=== PATIENT | female | born 1980 | race African-American/Black ===

== ENCOUNTER → 2016-10-06 | Outpatient (CLI) | payer BC ==
--- NOTE | 2016-10-06 09:22 | US ---
EXAMINATION TYPE: US gallbladder DATE OF EXAM: 10/06/2016 8:34 AM COMPARISON: None. CLINICAL HISTORY: 36-year-old female R10 Abdominal Pain. RUQ pain and 1 episode of N/V. TECHNIQUE: Multiple sonographic images of the right upper quadrant were obtained. FINDINGS: Liver Length: 15.0 cm Gallbladder Wall: 0.3 cm CBD: 0.4 cm Right Kidney: 11.9 x 4.4 x 5.6 cm Pancreas: Suboptimal visualization of the pancreatic head and tail secondary to shadowing from bowel gas. Visualized pancreatic neck and body show no gross abnormality. Liver: There is coarsening of the normal echotexture without focal lesion seen. Gallbladder: Numerous layering calculi/gravel. No abnormal distention, wall thickening, or perichole cystic fluid. Evidence for sonographic Mcrae's sign: yes CBD: visualized portions within normal limits, limited distally by overlying midline bowel gas. Right Kidney: No hydronephrosis. IMPRESSION: 1. Numerous tiny layering gallbladder calculi/gravel. While there are no ancillary findings of acute cholecystitis, sonographic Mcrae's sign is reportedly positive. If further imaging evaluation is rigo ired, consider HIDA scan. 2. Coarsened appearance to the liver could represent underlying nonspecific hepatocellular disease. C orrelate with LFTs and patient risk factors.
== END | disposition home or self-care (01) ==
LOC: RADUSWWP 08:15
PROVIDERS: ATTEND Internal Medicine
DX: R10.11 Right upper quadrant pain (principal)
CPT/HCPCS: 76705

== ENCOUNTER 2016-10-22 07:39 | Day surgery (SDC) | payer BC ==
[2016-10-19 12:00] VITALS: BMI 36.0
[~2016-10-22 07:39] MED LIST: LACTATED RINGERS 1,000 ML IV SCH; MIDAZOLAM 2 MG/2 ML VIAL IV PRN; SCOPOLAMINE 1.5MG/72HR PATCH TRANSDERM ONE; ceFAZolin 2 GM in SODIUM CHLORIDE 0.9% 100 ML IVPB ONE
[2016-10-22] MEDS: ONDANSETRON 4 MG/2 ML VIAL IVP ONE ×3 (08:29→10:25)
[2016-10-22] MEDS: DEXAMETHASONE SOD PHOSPHATE 10 MG/ML 1 ML VIAL IV ONE ×2 (08:29→09:22)
[2016-10-22] MEDS ORDERED: LIDOCAINE 1% 20 ML VIAL (10MG/ML) FOR IV START INTRADERMA ONE (08:29)
[2016-10-22] MEDS ORDERED: fentaNYL (PF) 50 MCG/ML 2 ML AMP ONE (09:22)
[2016-10-22] MEDS ORDERED: GLYCOPYRROLATE 0.2 MG/ML 2 ML VIAL ONE (09:22)
[2016-10-22] MEDS ORDERED: PHENYLEPHRINE-0.9% NACL SYG 1 MG/10 ML SYRINGE ONE (09:22)
[2016-10-22] MEDS ORDERED: LIDOCAINE 1% INJ 10MG/ML (20 ML MDV) ONE (09:22)
[2016-10-22] MEDS ORDERED: NEOSTIGMINE 1 MG/ML 10 ML VIAL ONE (09:22)
[2016-10-22] MEDS ORDERED: MIDAZOLAM 2 MG/2 ML VIAL ONE (09:22)
[2016-10-22] MEDS ORDERED: KETOROLAC 30 MG/ML 1 ML VIAL ONE (09:22)
[2016-10-22] MEDS ORDERED: PROPOFOL 10 MG/ML 20 ML VIAL IV ONE (09:22)
[2016-10-22] MEDS ORDERED: ROCURONIUM BROMIDE 10 MG/ML 10 ML VIAL IV ONE (09:22)
[2016-10-22] MEDS ORDERED: SUCCINYLCHOLINE CHLORIDE 100 MG/5 ML SYR IV ONE (09:22)
[2016-10-22] MEDS ORDERED: BUPIVACAIN-EPI 0.25%-1:200,000 30 ML VIAL SQ ONE ×2 (09:37)
[2016-10-22 10:18] VITALS: TEMP 98
[2016-10-22] MEDS: HYDROmorphone 1 MG/ML 1 ML SYRINGE IVP PRN ×4 (10:20→10:33)
--- NOTE | 2016-10-22 10:21 | P.OP ---
Date of Procedure: 10/22/16 Preoperative Diagnosis: Cholelithiasis, biliary colic Postoperative Diagnosis: Same, uterine fibroids Procedure(s) Performed: Laparoscopic cholecystectomy Anesthesia: KAPIL Surgeon: Katelin Mcgarry Estimated Blood Loss (ml): 10 Pathology: other (Gallbladder) Condition: stable Disposition: PACU Indications for Procedure: The patient presented with abdominal pain and workup showed cholelithiasis Operative Findings: The patient's taken to the OR where she is prepped and draped in the usual sterile manner. An infraumbilical incision was made. Fascia was grasped. A varies needle was placed into the abdominal cavity. Pneumoperitoneum was established with CO2 gas. Sites are chosen for accessory trochars needs are placed through small skin incisions. Abdominal and pelvic contents were examined with findings as described above. The fundus of gallbladder is grasped and retracted superiorly. Bharathi's pouch is identified its grasped and retracted laterally. The cystic artery and cystic duct are dissected free. They're triply clipped and cut. The gallbladder is dissected free from the liver bed. Small bleeding points are controlled with electrocautery. The gallBladder is removed through the umbilical port site. The liver bed is reexamined and noted be hemostatic. The excess irrigant is suctioned out. The pneumoperitoneum was released. The trochars were removed. The fascia at the umbilicus was closed with 0 Vicryl. The skin incisions were closed with 4-0 Vicryl in a subcuticular manner. Steri-Strips and dressings were applied. She tolerated the procedure without difficulty and was taken recovery room in satisfactory condition. According to or personnel all counts were correct. Plan - Discharge Summary New Discharge Prescriptions: HYDROcodone/APAP 5-325MG [[place] 5-325] 1 - 2 tab PO Q4H PRN #30 tab PRN Reason: Pain Discharge Medication List [place](Dose Unknown) 1 tab PO DAILY PRN 10/19/16 [History] HYDROcodone/APAP 5-325MG [[place] 5-325] 1 - 2 tab PO Q4H PRN #30 tab 10/22/16 [Rx ] Activity/Diet/Wound Care/Special Instructions: Maintain bandades until Tuesday. These may then be removed and you can shower. No tub baths for 1 week. Expect some bruising near the bellybutton. Low-fat diet for 1-2 months. Call if questions or concerns. See Dr. Mcgarry in the office in 2 weeks. Discharge Disposition: HOME SELF-CARE
[2016-10-22] MEDS ORDERED: MEPERIDINE 50 MG/ML SYRINGE IVP ONE (10:42)
[2016-10-22] MEDS ORDERED: HYDROcodone/APAP 5-325MG 1 EACH TAB PO ONE (11:30)
[2016-10-22 12:16] VITALS: BP 111/70; PULSE 57; RESP 18
== END 2016-10-22 13:01 | disposition home or self-care (01) ==
LOC: OR 07:39
PROVIDERS: ATTEND Surgery
DX: K80.10 Calculus of gallbladder with chronic cholecystitis without obstruction (principal); N85.8 Other specified noninflammatory disorders of uterus
CPT/HCPCS: 47562; 81025; 88304; J2250; J1100; J2710; J2175; J2405; J2001; J3010; J1885; J1170; J2370; J0330; J2704

== ENCOUNTER → 2017-01-27 | Outpatient (CLI) | payer BC ==
--- NOTE | 2017-01-27 14:53 | MM ---
Reason for exam: clinical finding. Baseline mammogram. History: Family history of breast cancer in grandmother. Benign excisional biopsy of the left breast, 2001. Took hormonal contraceptives for 6 years 9 months. Physical Findings: Nurse did not find any significant physical abnormalities on exam. MG Diagnostic Mammo w CAD [facility] Bilateral CC and MLO view(s) were taken. Prior study comparison: August 09, 2006, CAD bilateral diagnostic mammogram. November 06, 2004, bilateral diagnostic mammogram. There are scattered fibroglandular densities. There is chronic nodularity bilaterally. No significant new findings when compared with previous films. These results were verbally communicated with the patient and result sheet given to the patient on 01/27/17. ASSESSMENT: Benign, BI-RAD 2 RECOMMENDATION: Routine screening mammogram of both breasts at age 42.
== END | disposition home or self-care (01) ==
LOC: RADMAMWWP 13:31
PROVIDERS: ATTEND Obstetrics & Gynecology
DX: N63 Unspecified lump in breast (principal)

== ENCOUNTER → 2018-02-10 | Outpatient (CLI) | payer BC ==
--- NOTE | 2018-02-13 09:58 | MM ---
Reason for exam: screening (asymptomatic). Last mammogram was performed 1 year ago. History: Family history of breast cancer in grandmother. Benign excisional biopsy of the left breast, 2001. Took hormonal contraceptives for 6 years 9 months. Physical Findings: A clinical breast exam by your physician is recommended on an annual basis and results should be correlated with mammographic findings. MG Screening Mammo w CAD Bilateral CC and MLO view(s) were taken. Prior study comparison: January 27, 2017, bilateral MG diagnostic mammo w CAD [facility]. August 09, 2006, CAD bilateral diagnostic mammogram. There are scattered fibroglandular densities. No significant changes when compared with prior studies. ASSESSMENT: Benign, BI-RAD 2 RECOMMENDATION: Routine screening mammogram of both breasts at age 42.
== END | disposition home or self-care (01) ==
LOC: RADMAMWWP 07:31
PROVIDERS: ATTEND Family Medicine
DX: Z12.31 Encounter for screening mammogram for malignant neoplasm of breast (principal)
CPT/HCPCS: 77067

== ENCOUNTER → 2018-10-11 | Outpatient (CLI) | payer BC ==
--- NOTE | 2018-10-11 21:03 | MR ---
EXAMINATION TYPE: MR brain wo con DATE OF EXAM: 10/11/2018 COMPARISON: Prior MRI brain April 09, 2011 HISTORY: Headache, tingling in both arms and right leg, and syncope per patient in order. TECHNIQUE: Multiplanar, multisequence imaging of the brain and brainstem is performed without IV cont rast. FINDINGS: Diffusion weighted images demonstrate no evidence of a recent infarct or other diffusion abnormality. There is no worrisome extra-axial fluid collection. The ventricular system and cisternal spaces are normal in size and appearance. The brain volume is age appropriate. There is occasional scattered fo cus of T2 hyperintensity redemonstrated throughout the white matter bilaterally. Approximately 5-10 s cattered lesions are identified slightly increased in number from prior study, largest lesions right parietal 5 mm periventricular lesion axial image 19 is increased in size from prior. Midline structures demonstrate normal morphology. The craniocervical junction appears within normal limits. Normal vascular flow voids are present. Artifact distortion at level of the globes is seen on current study. Mild mucosal thickening involving inferior maxillary sinuses and bilateral ethmoid si nuses is noted. No suspicious opacification mastoid air cells is seen. IMPRESSION: Mild nonspecific white matter changes with some progression from prior MRI, one must excl ude demyelinating disease in patients of this age. Clinical correlation is advised.
== END ==
LOC: RADMRIMAIN 19:01
PROVIDERS: ATTEND Internal Medicine
DX: R90.89 Other abnormal findings on diagnostic imaging of central nervous system (principal)
CPT/HCPCS: 70551

== ENCOUNTER → 2022-01-15 | Outpatient (CLI) | payer BC ==
--- NOTE | 2022-01-18 09:02 | MM ---
Reason for Exam: Screening (asymptomatic). Last mammogram was performed 3 year(s) and 11 month(s) ago. Patient History: Menarche at age 13. First Full-Term at age 32. Late child-bearing (after 32). Hormonal Contraceptives for 6 years, 9 months. 2001, Benign Excisional Biopsy on the left side. Maternal grandmother had breast cancer. Last menstrual period: 12/25/2021 Risk Values: Maira 5 year model risk: 1.2%. NCI Lifetime model risk: 18.0%. Prior Study Comparison: 08/09/2006 Bilateral Diagnostic Mammogram, [facility]. 01/27/2017 Bilateral Diagnostic Mammogram, [facility]. 02/10/2018 Bilateral Screening Mammogram, [facility]. Tissue Density: The breast tissue is heterogeneously dense. This may lower the sensitivity of mammography. Findings: Analyzed By CAD. There is no suspicious group of microcalcifications or new suspicious mass in either breast. Overall Assessment: Negative, BI-RAD 1 Management: Screening Mammogram of both breasts in 1 year. A clinical breast exam by your physician is recommended on an annual basis and results should be correlated with mammographic findings. Electronically signed and approved by: Petros Mooney M.D. Radiologis
== END | disposition home or self-care (01) ==
LOC: RADMAMWWP 14:42
PROVIDERS: ATTEND Family Medicine
DX: Z12.31 Encounter for screening mammogram for malignant neoplasm of breast (principal); Z80.3 Family history of malignant neoplasm of breast
CPT/HCPCS: 77063; 77067

== ENCOUNTER → 2022-02-23 | Outpatient (CLI) | payer BC ==
[2022-02-23 14:34] LABS: Follicle Stimulating Hormone 1.9 mIU/mL; Luteinizing Hormone 3.8 mIU/mL; T4, Free (Free Thyroxine) 1.07 ng/dL (0.800-1.800); Testosterone 31.5 ng/mL (9.01-47.94)
== END | disposition home or self-care (01) ==
LOC: LABWHC1 07:44
PROVIDERS: ATTEND Internal Medicine
DX: L68.0 Hirsutism (principal)
CPT/HCPCS: 36415; 82672; 83001; 83002; 84403; 84439; 84443

== ENCOUNTER → 2023-10-06 | Outpatient (CLI) | payer BC ==
--- NOTE | 2023-10-06 15:04 | MM ---
Reason for Exam: Screening (asymptomatic). Last mammogram was performed 1 year(s) and 8 month(s) ago. Patient History: Menarche at age 13. First Full-Term at age 32. Late child-bearing (after 32). Premenopausal. Hormonal Contraceptives for 6 years, 9 months. 2002, Benign Excisional Biopsy on the left side. Maternal grandmother had breast cancer, age 55. Risk Values: Maira 5 year model risk: 0.7%. NCI Lifetime model risk: 9.7%. Prior Study Comparison: 01/27/2017 Bilateral Diagnostic Mammogram, [facility]. 02/10/2018 Bilateral Screening Mammogram, [facility]. 01/15/2022 Bilateral MG 3D screening mammo w/cad, [facility]. Tissue Density: There are scattered fibroglandular densities. Findings: Analyzed By CAD. There is no suspicious group of microcalcifications or new suspicious mass. Overall Assessment: Negative, BI-RAD 1 Management: Screening Mammogram of both breasts in [address] [facility] will attempt to contact patient to return for supplemental views and ultrasound if indicated. Patient should continue monthly self-breast exams. A clinical breast exam by your physician is recommended on an annual basis. This exam should not preclude additional follow-up of suspicious palpable abnormalities. Note on Maira scores and lifetime risk: 1. A Maira score greater than 3% is considered moderate risk. If this is the case, consider specialist referral to assess eligibility for a risk reducing agent. 2. If overall lifetime risk for the development of breast cancer is 20% or higher, the patient may qualify for future screening with alternating mammogram and breast MRI. Electronically signed and approved by: Paulino Lemon DO
== END | disposition home or self-care (01) ==
LOC: RADMAMWWP 11:02
PROVIDERS: ATTEND Obstetrics & Gynecology
DX: Z12.31 Encounter for screening mammogram for malignant neoplasm of breast (principal); Z80.3 Family history of malignant neoplasm of breast
CPT/HCPCS: 77063; 77067